=== PATIENT | female | born 1965 | race Hispanic/Latino ===

== ENCOUNTER 2016-07-31 19:48 | Emergency (ER) | payer SELFPAY ==
[2016-07-31 19:58] VITALS: BP 151/88
[2016-07-31 21:29] LABS: Basophils % (Auto) 0.8 % (0.0-1.8); Eosinophils % (Auto) 2.8 % (0.0-4.3); Hematocrit 38.1 % (30.3-42.9); Hemoglobin 12.7 gm/dl (10.1-14.3); Mean Corpuscular HGB Conc 33 % (30-34); Mean Corpuscular Hemoglobin 29 pg (28-32); Mean Corpuscular Volume 88 fl (79-97); Platelet Count 239 K/mm3 (140-440); Red Blood Count 4.35 M/mm3 (3.65-5.03); Red Cell Distribution Width 15.3 % (13.2-15.2); White Blood Count 8.4 K/mm3 (4.5-11.0)
[2016-07-31 21:37] LABS: Anion Gap 18 mmol/L; BUN/Creatinine Ratio 16.66; Blood Urea Nitrogen 10 mg/dL (7-17); Calcium 8.9 mg/dL (8.4-10.2); Carbon Dioxide 23 mmol/L (22-30); Chloride 103.6 mmol/L (98-107); Glucose 106 mg/dL (65-100); Sodium 141 mmol/L (137-145)
[2016-07-31 21:46] LABS: Urine Drugs of Abuse Note Disclamer
[2016-07-31 22:05] LABS: Bilirubin,Urine NEG (Negative); Blood,Urine NEG (Negative); Ketones,Urine NEG (Negative); Leukocyte Esterase,Urine NEG (Negative); Nitrite,Urine NEG (Negative); Protein,Urine <15 mg/dL mg/dL (Negative); RBC,Urine < 1.0 /HPF (0.0-6.0); Urobilinogen,Urine < 2.0 mg/dL (<2.0)
--- NOTE | 2016-08-03 19:12 | ED Elopement Review ---
ED Pt Elopement review - Results review Lab results: Laboratory Tests 07/31/16 07/31/16 07/31/16 21:05 21:05 21:05 WBC 8.4 RBC 4.35 Hgb 12.7 Hct 38.1 MCV 88 MCH 29 MCHC 33 RDW 15.3 H Plt Count 239 Lymph % (Auto) 22.5 [place] % (Auto) 5.1 Eos % (Auto) 2.8 Baso % (Auto) 0.8 Lymph # 1.9 [place] # 0.4 Eos # 0.2 Baso # 0.1 Seg Neutrophils % 68.8 Seg Neutrophils # 5.8 Sodium 141 Potassium 4.0 Chloride 103.6 Carbon Dioxide 23 Anion Gap 18 BUN 10 Creatinine 0.6 L Estimated GFR > 60 BUN/Creatinine Ratio 16.66 Glucose 106 H Calcium 8.9 Urine Color Urine Turbidity Urine pH Ur Specific [place] Urine Protein Urine Glucose (UA) Urine Ketones Urine Blood Urine Nitrite Urine Bilirubin Urine Urobilinogen Ur Leukocyte Esterase Urine WBC (Auto) Urine RBC (Auto) U Epithel Cells (Auto) Urine HCG, Qual Urine Opiates Screen Urine Methadone Screen Ur Barbiturates Screen Ur Phencyclidine Scrn Ur Amphetamines Screen U Benzodiazepines Scrn Urine Cocaine Screen U Marijuana (THC) Screen Drugs of Abuse Note Plasma/Serum Alcohol < 0.01 07/31/16 07/31/16 21:38 21:38 WBC RBC Hgb Hct MCV MCH MCHC RDW Plt Count Lymph % (Auto) [place] % (Auto) Eos % (Auto) Baso % (Auto) Lymph # [place] # Eos # Baso # Seg Neutrophils % Seg Neutrophils # Sodium Potassium Chloride Carbon Dioxide Anion Gap BUN Creatinine Estimated GFR BUN/Creatinine Ratio Glucose Calcium Urine Color Yellow Urine Turbidity Clear Urine pH 5.0 Ur Specific [place] 1.015 Urine Protein <15 mg/dl Urine Glucose (UA) Neg Urine Ketones Neg Urine Blood Neg Urine Nitrite Neg Urine Bilirubin Neg Urine Urobilinogen < 2.0 Ur Leukocyte Esterase Neg Urine WBC (Auto) 1.0 Urine RBC (Auto) < 1.0 U Epithel Cells (Auto) 2.0 Urine HCG, Qual Negative Urine Opiates Screen Presumptive negative Urine Methadone Screen Presumptive negative Ur Barbiturates Screen Presumptive positive Ur Phencyclidine Scrn Presumptive negative Ur Amphetamines Screen Presumptive negative U Benzodiazepines Scrn Presumptive negative Urine Cocaine Screen Presumptive negative U Marijuana (THC) Screen Presumptive negative Drugs of Abuse Note Disclamer Plasma/Serum Alcohol - Call Back decision Pt Call Back Decision: Pt to F/U with PMD
== END 2016-07-31 22:25 | disposition left against medical advice (07) ==
LOC: ED 19:48
DX: Z00.8 Encounter for other general examination (principal); M19.90 Unspecified osteoarthritis, unspecified site; E11.9 Type 2 diabetes mellitus without complications; F31.9 Bipolar disorder, unspecified; F17.200 Nicotine dependence, unspecified, uncomplicated; Z53.21 Procedure and treatment not carried out due to patient leaving prior to being seen by health care provider
CPT/HCPCS: 36415; 80048; 80307; 81001; 81025; 85025; G0480; 80320

== ENCOUNTER 2018-11-20 20:01 | Emergency (ER) | payer SELFPAY ==
--- NOTE | 2018-11-20 20:24 | Event Note ---
ED Screening Note Date of service: 11/20/18 Time: 20:18 ED Screening Note: This is a 53 y.o. F. that presents to the ER with chest pain and seizures. PMH DM, fatty liver, bipolar, OCD, and schizophrenia. Patient also reports HI thoughts. This initial assessment/diagnostic orders/clinical plan/treatment(s) is/are subject to change based on patients health status, clinical progression and re- assessment by fellow clinical providers in the ED. Further treatment and workup at subsequent clinical providers discretion. Patient/guardian urged not to elope from the ED as their condition may be serious if not clinically assessed and managed. Initial orders include: Labs and CXR
[2018-11-20 20:53] LABS: Basophils # (Auto) 0.1 K/mm3 (0.0-0.1); Basophils % (Auto) 0.7 % (0.0-1.8); Eosinophils # (Auto) 0.3 K/mm3 (0.0-0.4); Eosinophils % (Auto) 3.5 % (0.0-4.3); Hematocrit 36.6 % (30.3-42.9); Hemoglobin 12.4 gm/dl (10.1-14.3); Lymphocytes # (Auto) 2.6 K/mm3 (1.2-5.4); Lymphocytes % (Auto) 29.5 % (13.4-35.0); Mean Corpuscular HGB Conc 34 % (30-34); Mean Corpuscular Volume 88 fl (79-97); Monocytes # (Auto) 0.8 K/mm3 (0.0-0.8); Monocytes % (Auto) 8.8 % (0.0-7.3); Platelet Count 212 K/mm3 (140-440); Red Blood Count 4.14 M/mm3 (3.65-5.03); Red Cell Distribution Width 14.7 % (13.2-15.2)
--- NOTE | 2018-11-20 21:06 | XRay Report ---
CHEST 1 VIEW INDICATION: chest pain. COMPARISON: 11/20/2018. FINDINGS: Support devices: None. Heart: Within normal limits. Lungs/Pleura: No acute air space or interstitial disease. Additional findings: None. IMPRESSION: No acute abnormality. Signer Name: Arnaldo Luciano MD Signed: 11/20/2018 9:02 PM Workstation Name: [id number]
[2018-11-20 21:14] LABS: BUN/Creatinine Ratio 31; Blood Urea Nitrogen 22 mg/dL (7-17); Calcium 9.1 mg/dL (8.4-10.2); Hemolysis Index 5
[2018-11-20 21:27] LABS: Bacteria,Urine 1+ /HPF (Negative); Bilirubin,Urine NEG (Negative); Blood,Urine NEG (Negative); Color,Urine Yellow (Yellow); Hyaline Casts,Urine 2 /LPF; Mucus,Urine FEW /HPF; Protein,Urine <15 mg/dL mg/dL (Negative); Urobilinogen,Urine < 2.0 mg/dL (<2.0)
[2018-11-20 21:33] LABS: Benzodiazepines Screen,Urine PRESUMPTIVE NEGATIVE; Methadone Screen,Urine PRESUMPTIVE NEGATIVE; Opiate Screen,Urine PRESUMPTIVE NEGATIVE
[2018-11-20 21:44] LABS: Amphetamine Screen,Urine PRESUMPTIVE POSITIVE; Cannabinoid Screen,Urine PRESUMPTIVE POSITIVE; Cocaine Screen,Urine PRESUMPTIVE POSITIVE
--- NOTE | 2018-11-20 22:09 | Emergency Department Report ---
ED General Adult HPI - General Chief complaint: Chest Pain Stated complaint: CHEST PAIN Time Seen by Provider: 11/20/18 20:18 Source: patient, EMS Mode of arrival: Stretcher Limitations: No Limitations - History of Present Illness Initial comments: 53-year-old female with a past medical history of borderline diabetes, fatty liver, bipolar disorder, OCD, and seizures as a child presents to the hospital for possible seizures and chest pain. Patient states he had chest pain earlier today which has since resolved. She states she had episodes of seizures today. Last seizure was at age 17. She is not on seizure meds. She states she notes she had a seizure because she knows what a seizure feels like based on her easier at age 17. Patient's lab results hadn't resulted at time of my evaluation. Her UDS is positive for amphetamines and cocaine, and marijuana. - Related Data Previous Rx's Medication Instructions Recorded Last Taken Type Chlorhexidine Soap 4% 10 ml TP TID #240 ml 08/23/13 Unknown Rx Clindamycin [Clindamycin CAP] 300 mg PO Q6H #40 capsule 08/23/13 Unknown Rx HYDROcodone/APAP 10-325 [[place] 1 each PO Q6HR PRN #20 tablet 08/23/13 Unknown Rx 10/325] Naproxen Sodium (Nf) [Anaprox DS] 550 mg PO BID #20 tablet 08/23/13 Unknown Rx Famotidine [Pepcid] 20 mg PO DAILY #14 tablet 02/10/18 Unknown Rx Ziprasidone [Geodon] 20 mg PO BID #30 capsule 02/10/18 Unknown Rx Allergies Allergy/AdvReac Type Severity Reaction Status Date / Time acetaminophen [From Percocet] Allergy Hives Verified 02/10/18 12:15 bee pollen Allergy Hives Verified 02/10/18 12:15 oxycodone [From Percocet] Allergy Hives Verified 02/10/18 12:15 ED Review of Systems ROS: Stated complaint: CHEST PAIN Other details as noted in HPI Comment: All other systems reviewed and negative ED Past Medical Hx - Past Medical History Hx Diabetes: Yes (boarderline) Hx Liver Disease: Yes (fatty liver) Hx Arthritis: Yes Hx Seizures: Yes Hx Psychiatric Treatment: Yes (bipolar,OCD) - Surgical History Additional Surgical History: surgery to remove cancer from face - Social History Smoking Status: Current Every Day Smoker Substance Use Type: None - Medications Home Medications: Home Medications Medication Instructions Recorded Confirmed Last Taken Type Chlorhexidine Soap 4% 10 ml TP TID #240 ml 08/23/13 Unknown Rx Clindamycin [Clindamycin CAP] 300 mg PO Q6H #40 capsule 08/23/13 Unknown Rx HYDROcodone/APAP 10-325 [[place] 1 each PO Q6HR PRN #20 tablet 08/23/13 Unknown Rx 10/325] Naproxen Sodium (Nf) [Anaprox DS] 550 mg PO BID #20 tablet 08/23/13 Unknown Rx Famotidine [Pepcid] 20 mg PO DAILY #14 tablet 02/10/18 Unknown Rx Ziprasidone [Geodon] 20 mg PO BID #30 capsule 02/10/18 Unknown Rx ED Physical Exam - General Limitations: No Limitations - Other Other exam information: General: no acute distress Head: Atraumatic, normocephalic Eyes: Normal appearance, pupils equal and reactive to light, extraocular movements intact ENT: normal oropharynx Neck: Normal appearance, no stridor, no meningismus, no midline tenderness. Cardiovascular: Regular rate and rhythm Chest: Clear to auscultation, no wheezes, rales, or crackles Abdomen: nondistended, soft, nontender, no rebound or guarding Extremity: Normal appearance, no deformity, full range of motion Neuro: Alert and oriented 3, clear speech, no gross motor or sensory deficit Skin: No warmth, erythema ED Course Vital Signs 11/20/18 11/20/18 20:11 20:19 Temperature 98.8 F 98 F Pulse Rate 81 75 Respiratory 18 18 Rate Blood Pressure 154/77 132/71 O2 Sat by Pulse 96 96 Oximetry ED Medical Decision Making - Lab Data Result diagrams: 11/20/18 20:31 11/20/18 20:31 Lab Results 11/20/18 11/20/18 11/20/18 Range/Units 20:31 20:31 20:31 WBC (4.5-11.0) K/mm3 RBC (3.65-5.03) M/mm3 Hgb (10.1-14.3) gm/dl Hct (30.3-42.9) % MCV (79-97) fl MCH (28-32) pg MCHC (30-34) % RDW (13.2-15.2) % Plt Count (140-440) K/mm3 Lymph % (Auto) (13.4-35.0) % [place] % (Auto) (0.0-7.3) % Eos % (Auto) (0.0-4.3) % Baso % (Auto) (0.0-1.8) % Lymph # (1.2-5.4) K/mm3 [place] # (0.0-0.8) K/mm3 Eos # (0.0-0.4) K/mm3 Baso # (0.0-0.1) K/mm3 Seg Neutrophils % (40.0-70.0) % Seg Neutrophils # (1.8-7.7) K/mm3 Sodium 134 L (137-145) mmol/L Potassium 3.6 (3.6-5.0) mmol/L Chloride 97.5 L (98-107) mmol/L Carbon Dioxide 24 (22-30) mmol/L Anion Gap 16 mmol/L BUN 22 H (7-17) mg/dL Creatinine 0.7 (0.7-1.2) mg/dL Estimated GFR > 60 ml/min BUN/Creatinine Ratio 31 % Glucose 88 (65-100) mg/dL Calcium 9.1 (8.4-10.2) mg/dL Troponin T (0.00-0.029) ng/mL Urine Color (Yellow) Urine Turbidity (Clear) Urine pH (5.0-7.0) Ur Specific [place] (1.003-1.030) Urine Protein (Negative) mg/dL Urine Glucose (UA) (Negative) mg/dL Urine Ketones (Negative) mg/dL Urine Blood (Negative) Urine Nitrite (Negative) Urine Bilirubin (Negative) Urine Urobilinogen (<2.0) mg/dL Ur Leukocyte Esterase (Negative) Urine WBC (Auto) (0.0-6.0) /HPF Urine RBC (Auto) (0.0-6.0) /HPF U Epithel Cells (Auto) (0-13.0) /HPF Urine Bacteria (Auto) (Negative) /HPF Hyaline Casts /LPF Urine Mucus /HPF Salicylates < 0.3 L (2.8-20.0) mg/dL Urine Opiates Screen Urine Methadone Screen Acetaminophen < 5.0 L (10.0-30.0) ug/mL Ur Barbiturates Screen Ur Phencyclidine Scrn Ur Amphetamines Screen U Benzodiazepines Scrn Urine Cocaine Screen U Marijuana (THC) Screen Drugs of Abuse Note Plasma/Serum Alcohol (0-0.07) % 11/20/18 11/20/18 11/20/18 Range/Units 20:31 20:31 20:31 WBC 8.7 (4.5-11.0) K/mm3 RBC 4.14 (3.65-5.03) M/mm3 Hgb 12.4 (10.1-14.3) gm/dl Hct 36.6 (30.3-42.9) % MCV 88 (79-97) fl MCH 30 (28-32) pg MCHC 34 (30-34) % RDW 14.7 (13.2-15.2) % Plt Count 212 (140-440) K/mm3 Lymph % (Auto) 29.5 (13.4-35.0) % [place] % (Auto) 8.8 H (0.0-7.3) % Eos % (Auto) 3.5 (0.0-4.3) % Baso % (Auto) 0.7 (0.0-1.8) % Lymph # 2.6 (1.2-5.4) K/mm3 [place] # 0.8 (0.0-0.8) K/mm3 Eos # 0.3 (0.0-0.4) K/mm3 Baso # 0.1 (0.0-0.1) K/mm3 Seg Neutrophils % 57.5 (40.0-70.0) % Seg Neutrophils # 5.0 (1.8-7.7) K/mm3 Sodium (137-145) mmol/L Potassium (3.6-5.0) mmol/L Chloride (98-107) mmol/L Carbon Dioxide (22-30) mmol/L Anion Gap mmol/L BUN (7-17) mg/dL Creatinine (0.7-1.2) mg/dL Estimated GFR ml/min BUN/Creatinine Ratio % Glucose (65-100) mg/dL Calcium (8.4-10.2) mg/dL Troponin T < 0.010 (0.00-0.029) ng/mL Urine Color (Yellow) Urine Turbidity (Clear) Urine pH (5.0-7.0) Ur Specific [place] (1.003-1.030) Urine Protein (Negative) mg/dL Urine Glucose (UA) (Negative) mg/dL Urine Ketones (Negative) mg/dL Urine Blood (Negative) Urine Nitrite (Negative) Urine Bilirubin (Negative) Urine Urobilinogen (<2.0) mg/dL Ur Leukocyte Esterase (Negative) Urine WBC (Auto) (0.0-6.0) /HPF Urine RBC (Auto) (0.0-6.0) /HPF U Epithel Cells (Auto) (0-13.0) /HPF Urine Bacteria (Auto) (Negative) /HPF Hyaline Casts /LPF Urine Mucus /HPF Salicylates (2.8-20.0) mg/dL Urine Opiates Screen Urine Methadone Screen Acetaminophen (10.0-30.0) ug/mL Ur Barbiturates Screen Ur Phencyclidine Scrn Ur Amphetamines Screen U Benzodiazepines Scrn Urine Cocaine Screen U Marijuana (THC) Screen Drugs of Abuse Note Plasma/Serum Alcohol < 0.01 (0-0.07) % 11/20/18 11/20/18 Range/Units 21:08 21:08 WBC (4.5-11.0) K/mm3 RBC (3.65-5.03) M/mm3 Hgb (10.1-14.3) gm/dl Hct (30.3-42.9) % MCV (79-97) fl MCH (28-32) pg MCHC (30-34) % RDW (13.2-15.2) % Plt Count (140-440) K/mm3 Lymph % (Auto) (13.4-35.0) % [place] % (Auto) (0.0-7.3) % Eos % (Auto) (0.0-4.3) % Baso % (Auto) (0.0-1.8) % Lymph # (1.2-5.4) K/mm3 [place] # (0.0-0.8) K/mm3 Eos # (0.0-0.4) K/mm3 Baso # (0.0-0.1) K/mm3 Seg Neutrophils % (40.0-70.0) % Seg Neutrophils # (1.8-7.7) K/mm3 Sodium (137-145) mmol/L Potassium (3.6-5.0) mmol/L Chloride (98-107) mmol/L Carbon Dioxide (22-30) mmol/L Anion Gap mmol/L BUN (7-17) mg/dL Creatinine (0.7-1.2) mg/dL Estimated GFR ml/min BUN/Creatinine Ratio % Glucose (65-100) mg/dL Calcium (8.4-10.2) mg/dL Troponin T (0.00-0.029) ng/mL Urine Color Yellow (Yellow) Urine Turbidity Slightly-cloudy (Clear) Urine pH 5.0 (5.0-7.0) Ur Specific [place] 1.024 (1.003-1.030) Urine Protein <15 mg/dl (Negative) mg/dL Urine Glucose (UA) Neg (Negative) mg/dL Urine Ketones Neg (Negative) mg/dL Urine Blood Neg (Negative) Urine Nitrite Neg (Negative) Urine Bilirubin Neg (Negative) Urine Urobilinogen < 2.0 (<2.0) mg/dL Ur Leukocyte Esterase Neg (Negative) Urine WBC (Auto) 4.0 (0.0-6.0) /HPF Urine RBC (Auto) 2.0 (0.0-6.0) /HPF U Epithel Cells (Auto) 2.0 (0-13.0) /HPF Urine Bacteria (Auto) 1+ (Negative) /HPF Hyaline Casts 2 /LPF Urine Mucus Few /HPF Salicylates (2.8-20.0) mg/dL Urine Opiates Screen Presumptive negative Urine Methadone Screen Presumptive negative Acetaminophen (10.0-30.0) ug/mL Ur Barbiturates Screen Presumptive negative Ur Phencyclidine Scrn Presumptive negative Ur Amphetamines Screen Presumptive positive U Benzodiazepines Scrn Presumptive negative Urine Cocaine Screen Presumptive positive U Marijuana (THC) Screen Presumptive positive Drugs of Abuse Note Disclamer Plasma/Serum Alcohol (0-0.07) % - EKG Data -: EKG Interpreted by [facility] EKG shows normal: sinus rhythm, axis (qrs -31), QRS complexes (qrsd 103), ST-T waves (no stemi) Rate: normal (69) - EKG Data When compared to previous EKG there are: no significant change - Radiology Data Radiology results: report reviewed CHEST 1 VIEW INDICATION: chest pain. COMPARISON: 11/20/2018. FINDINGS: Support devices: None. Heart: Within normal limits. Lungs/Pleura: No acute air space or interstitial disease. Additional findings: None. IMPRESSION: No acute abnormality. CT head without contrast INDICATION : possible seizure. TECHNIQUE: Axial imaging performed from the skull apex through the skull base without the use of contrast. All CT scans at this location are performed using CT dose reduction for ALARA by means of automated exposure control. COMPARISON: None FINDINGS: Parenchyma: No acute intracranial hemorrhage or parenchymal abnormality. Ventricles: Ventricles are normal in size and appear symmetric. Soft tissues: Soft tissues including the orbits appear normal. Bones: No acute osseous abnormality. Sinuses: Mild mucosal thickening in the left maxillary sinus. Remaining sinuses and mastoid air cells are clear. IMPRESSION: No acute abnormality. - Medical Decision Making pt c/o seizures + psych hx with + UDS for multiple substances no witnessed therefore not going to tx at this time. ct head and labs without significant abnormalities plan to d/c with neuro and pmd f/u - Differential Diagnosis substance abuse, psychosis, OR, atypical chest pain Critical Care Time: No Critical care attestation.: If time is entered above; I have spent that time in minutes in the direct care of this critically ill patient, excluding procedure time. ED Disposition Clinical Impression: Polysubstance abuse, Psychiatric disorder, Seizure Disposition: DC-01 TO HOME OR SELFCARE Is pt being admited?: No Does the pt Need Aspirin: No Condition: Stable Instructions: Methamphetamine Abuse (ED), Cocaine Abuse (ED), Recurrent Seizures Adult (ED) Additional Instructions: Follow-up with your doctor or the doctor/clinic provided. Return if symptoms worsen as indicated by your discharge instructions. Follow up with a neurologist for further seizure evaluation Referrals: JOHANA RECIO MD [Primary Care Provider] - 3-5 Days STEFANIE SOLIS MD [Staff Physician] - 3-5 Days [facility] [Outside] - 3-5 Days Time of Disposition: 23:43
--- NOTE | 2018-11-20 23:25 | Cat Scan Report ---
CT head without contrast INDICATION : possible seizure. TECHNIQUE: Axial imaging performed from the skull apex through the skull base without the use of con trast. All CT scans at this location are performed using CT dose reduction for [place] by means of aut omated exposure control. COMPARISON: None FINDINGS: Parenchyma: No acute intracranial hemorrhage or parenchymal abnormality. Ventricles: Ventricles are normal in size and appear symmetric. Soft tissues: Soft tissues including the orbits appear normal. Bones: No acute osseous abnormality. Sinuses: Mild mucosal thickening in the left maxillary sinus. Remaining sinuses and mastoid air cell s are clear. IMPRESSION: No acute abnormality. Signer Name: Issac Machuca MD Signed: 11/20/2018 11:21 PM Workstation Name: [id number]
[2018-11-21 01:36] VITALS: BP 134/76
== END 2018-11-20 23:50 | disposition home or self-care (01) ==
LOC: ED 20:01
DX: R56.9 Unspecified convulsions (principal); F19.10 Other psychoactive substance abuse, uncomplicated; F99 Mental disorder, not otherwise specified; F31.9 Bipolar disorder, unspecified; E11.9 Type 2 diabetes mellitus without complications; F17.200 Nicotine dependence, unspecified, uncomplicated; Z88.6 Allergy status to analgesic agent; Z88.5 Allergy status to narcotic agent; Z91.030 Bee allergy status
CPT/HCPCS: 36415; 70450; 71045; 80048; 80307; 80320; 81001; 84484; 85025; 93005; 93010; G0480

== ENCOUNTER 2018-11-21 02:12 | Emergency (ER) | payer SELFPAY ==
[2018-11-21 02:20] VITALS: BP 142/74
[2018-11-21] MEDS ORDERED: IBUPROFEN PO ONE (02:59)
[2018-11-21] MEDS ORDERED: BACTRIM DS PO ONE (02:59)
--- NOTE | 2018-11-21 03:04 | Emergency Department Report ---
ED Extremity Problem HPI - General Chief complaint: Extremity Injury, Lower Stated complaint: FOOT PAIN Time Seen by Provider: 11/21/18 03:00 Source: patient Mode of arrival: Ambulatory Limitations: No Limitations - History of Present Illness MD Complaint: extremity pain (bilateral foot pain due to erythematous rashes), extremity swelling (mildly swollen erythematous ulcerated wounds on left foot) -: Gradual, month(s) (2) Location: bilateral lower extremity (feet, worse on left foot) History of Same: Yes -: Yes myalgia, Yes arthralgia, No fever, No associated dyspnea, No associated chest pain Radiation: distal Severity scale (0 -10): 6 Quality: burning, aching, sharp Consistency: constant Worsens with: weight bearing, walking, palpation Associated Symptoms: denies other symptoms, rash (Erythematous ulcerated wounds and abrasions on dorsal left foot). denies: chest pain, shortness of breath, fe isabel, myalgias - Related Data Previous Rx's Medication Instructions Recorded Last Taken Type Chlorhexidine Soap 4% 10 ml TP TID #240 ml 08/23/13 Unknown Rx Clindamycin [Clindamycin CAP] 300 mg PO Q6H #40 capsule 08/23/13 Unknown Rx HYDROcodone/APAP 10-325 [[place] 1 each PO Q6HR PRN #20 tablet 08/23/13 Unknown Rx 10/325] Naproxen Sodium (Nf) [Anaprox DS] 550 mg PO BID #20 tablet 08/23/13 Unknown Rx Famotidine [Pepcid] 20 mg PO DAILY #14 tablet 02/10/18 Unknown Rx Ziprasidone [Geodon] 20 mg PO BID #30 capsule 02/10/18 Unknown Rx Ibuprofen [Motrin] 600 mg PO Q8H PRN #20 tablet 11/21/18 Unknown Rx Mupirocin [Bactroban 2% OINT] 1 applic TP Q8H #1 tube 11/21/18 Unknown Rx Sulfamethoxazole/Trimethoprim 1 each PO BID #20 tablet 11/21/18 Unknown Rx [Bactrim DS TAB] Allergies Allergy/AdvReac Type Severity Reaction Status Date / Time acetaminophen [From Percocet] Allergy Hives Verified 02/10/18 12:15 bee pollen Allergy Hives Verified 02/10/18 12:15 oxycodone [From Percocet] Allergy Hives Verified 02/10/18 12:15 ED Review of Systems ROS: Stated complaint: FOOT PAIN Other details as noted in HPI Constitutional: denies: chills, fever Eyes: denies: eye pain, eye discharge, vision change ENT: denies: ear pain, throat pain Respiratory: denies: cough, shortness of breath, wheezing Cardiovascular: denies: chest pain, palpitations Endocrine: no symptoms reported Gastrointestinal: denies: abdominal pain, nausea, diarrhea Genitourinary: denies: urgency, dysuria, discharge Musculoskeletal: arthralgia (erythematous maculopapular rashes on dorsal left foot with pain). denies: back pain, joint swelling Skin: rash (erythematous maculopapular rashes on dorsal left foot), change in color (erythematous rashes on dorsal left foot). 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 cancer from face - Social History Smoking Status: Former Smoker Substance Use Type: None - Medications Home Medications: Home Medications Medication Instructions Recorded Confirmed Last Taken Type Chlorhexidine Soap 4% 10 ml TP TID #240 ml 08/23/13 Unknown Rx Clindamycin [Clindamycin CAP] 300 mg PO Q6H #40 capsule 08/23/13 Unknown Rx HYDROcodone/APAP 10-325 [[place] 1 each PO Q6HR PRN #20 tablet 08/23/13 Unknown Rx 10/325] Naproxen Sodium (Nf) [Anaprox DS] 550 mg PO BID #20 tablet 08/23/13 Unknown Rx Famotidine [Pepcid] 20 mg PO DAILY #14 tablet 02/10/18 Unknown Rx Ziprasidone [Geodon] 20 mg PO BID #30 capsule 02/10/18 Unknown Rx Ibuprofen [Motrin] 600 mg PO Q8H PRN #20 tablet 11/21/18 Unknown Rx Mupirocin [Bactroban 2% OINT] 1 applic TP Q8H #1 tube 11/21/18 Unknown Rx Sulfamethoxazole/Trimethoprim 1 each PO BID #20 tablet 11/21/18 Unknown Rx [Bactrim DS TAB] ED Physical Exam - General Limitations: No Limitations ED Course Vital Signs 11/21/18 02:18 Temperature 97.5 F L Pulse Rate 63 Respiratory 18 Rate Blood Pressure 142/74 O2 Sat by Pulse 98 Oximetry - Reevaluation(s) Reevaluation #1: 11/21/18 03:03 This is a 53-year-old white female who presented to the ED with complaint of persistent nontraumatic painful abrasion and ulcerated wounds on dorsal left foot for the last 2 months. Patient is alert and oriented 3 and is not in distress, resting comfortably in the chair eating candy. Patient was treated for pain because of the physical exam findings of mild cellulitis on her dorsal left food. Patient was discharged home on pain medications and mupirocin ointment as well as oral antibiotics. Patient is advised to return to the ED immediately if symptoms get worse. Patient was otherwise advised to follow up with her primary care physician in 7-10 days for reevaluation. ED Medical Decision Making - Medical Decision Making This is a 53-year-old white female who presented to the ED with complaint of persistent nontraumatic painful abrasion and ulcerated wounds on dorsal left foot for the last 2 months. Patient is alert and oriented 3 and is not in distress, resting comfortably in the chair eating candy. Patient was treated for pain because of the physical exam findings of mild cellulitis on her dorsal left food. Patient was discharged home on pain medications and mupirocin ointment as well as oral antibiotics. Patient is advised to return to the ED immediately if symptoms get worse. Patient was otherwise advised to follow up with her primary care physician in 7-10 days for reevaluation. - Differential Diagnosis Cellulitis; Bilateral foot ulcers; muscle strain Critical care attestation.: If time is entered above; I have spent that time in minutes in the direct care of this critically ill patient, excluding procedure time. ED Disposition Clinical Impression: Cellulitis of foot Pressure ulcer with abrasion, blister, partial thickness skin loss involving epidermis and/or dermis Qualifiers: Pressure injury location: foot, unspecified location Laterality: unspecified laterality Qualified Code(s): L89.892 - Pressure ulcer of other site, stage 2 Disposition: DC-01 TO HOME OR SELFCARE Is pt being admited?: No Does the pt Need Aspirin: No Condition: Stable Instructions: Cellulitis (ED), Diabetic Foot Ulcers (ED) Additional Instructions: Take medications with food, drink plenty of fluids and follow-up with your primary care physician in 7-10 days for reevaluation. Return to the ED immediately if symptoms get worse. Prescriptions: Sulfamethoxazole/Trimethoprim [Bactrim DS TAB] 1 each PO BID #20 tablet Mupirocin [Bactroban 2% OINT] 1 applic TP Q8H #1 tube Ibuprofen [Motrin] 600 mg PO Q8H PRN #20 tablet PRN Reason: Pain Referrals: [facility] [Outside] - 3-5 Days Time of Disposition: 03:06 Print Language: GREEK
== END 2018-11-21 03:36 | disposition home or self-care (01) ==
LOC: ED 02:12
DX: L89.92 Pressure ulcer of unspecified site, stage 2 (principal); E11.9 Type 2 diabetes mellitus without complications; M19.90 Unspecified osteoarthritis, unspecified site; F31.9 Bipolar disorder, unspecified; Z87.891 Personal history of nicotine dependence; Z88.6 Allergy status to analgesic agent; Z88.5 Allergy status to narcotic agent; Z91.030 Bee allergy status